=== PATIENT | female | born 1970 | race Caucasian/White ===

== ENCOUNTER 2016-10-30 11:25 | Emergency (ER) | payer BC, OTHER ==
[~2016-10-30] VITALS: Ht 157.5 cm; Wt 99.5 kg
[2016-10-30] MEDS ORDERED: ESTR125TA PO (11:40)
[2016-10-30] MEDS ORDERED: AUGM500T34 PO (13:04)
[2016-10-30] MEDS ORDERED: BACT800T5 PO (13:09)
[2016-10-30 13:10] VITALS: BP 155/69
== END 2016-10-30 13:15 | disposition home or self-care (01) ==
LOC: M ED 11:25
DX: L03.115 Cellulitis of right lower limb (principal); L03.116 Cellulitis of left lower limb; I87.2 Venous insufficiency (chronic) (peripheral); F17.200 Nicotine dependence, unspecified, uncomplicated; Z79.890 Hormone replacement therapy; Z88.0 Allergy status to penicillin; Z88.5 Allergy status to narcotic agent; Z91.040 Latex allergy status

== ENCOUNTER 2017-11-26 22:26 | Emergency (ER) | payer BC | END 2017-11-27 02:35 | disposition left against medical advice (07) | LOC: M ED 22:26 | DX: Z53.21 Procedure and treatment not carried out due to patient leaving prior to being seen by health care provider (principal) ==